=== PATIENT | male | born 1940 | race Caucasian/White ===

== ENCOUNTER 2017-11-06 11:00 | Observation (INO) | payer OTHER ==
[~2017-11-06] VITALS: Ht 170.2 cm; Wt 99.0 kg
[~2017-11-06 11:00] MED LIST: FISH OIL 1,2001 EAC3 PO; LO-DOSE ASPIRIN81 M1 PO; MICRO-K10 ME1 PO; NEURONTIN300 MG PO; OMEPRAZOLE20 MG PO; OMEPRAZOLE40 M1 PO; TRANXENE T-TA3.75 MG PO; ZESTORETIC,P1 TABLE1 PO; ZOCOR40 MG PO
[2017-11-06 12:24] LABS: ALBUMIN 4.3 g/dL (3.2-4.8); CHLORIDE 111 mEq/L (99-109); POTASSIUM 4.4 mEq/L (3.7-5.4); SODIUM 138 mEq/L (136-147)
[2017-11-06 12:26] LABS: GLUCOSE 117 mg/dL (70-99); TOTAL PROTEIN 8.4 g/dL (6.4-8.3)
[2017-11-06 12:28] LABS: TOTAL BILIRUBIN 0.8 mg/dL (0.0-1.0)
[2017-11-06 12:30] LABS: ALKALINE PHOSPHATASE 91 IU/L (3-129); CREATININE 1.1 mg/dL (0.6-1.3); GFR ESTIMATE (CALCULATED) > 59 mL/min/ (58.99-99999)
[2017-11-06 12:31] LABS: AST (GOT) 66 IU/L (2-34); UREA NITROGEN (BUN) 25 mg/dL (9-23)
[2017-11-06 12:33] LABS: ALT (GPT) 38 IU/L (3-49); LIPASE 38 U/L (1.0-51.0)
[2017-11-06 12:51] LABS: HEMATOCRIT 39.9 % (38.0-50.0); HEMOGLOBIN 13.7 G/DL (12.5-16.6); MCH 32.6 PG (29.0-34.0); MCHC 34.3 G/DL (30.0-36.0); PLATELET COUNT 124 K/uL (156-360); RBC DIS.WIDTH-CV 13.2 % (11.8-14.6); RBC DIS.WIDTH-SD 45.7 % (39-53); WHITE BLOOD COUNT 5.9 K/uL (4.1-10.2)
[2017-11-06 13:08] LABS: APPEARANCE CLEAR ((CLEAR)); BILIRUBIN NEGATIVE; BLOOD NEGATIVE; COLOR YELLOW ((YELLOW)); GLUCOSE (STRIP) NEGATIVE; KETONES NEGATIVE; LEUKOCYTES SMALL; NITRITE NEGATIVE; PROTEIN (STRIP) 30; SPECIFIC GRAVITY 1.026 (1.000-1.030); UROBILINOGEN 0.2 MG/DL (0.2-1.0)
[2017-11-06 13:19] LABS: BACTERIA NONE SEEN /HPF; EPITHELIAL CELLS RARE /HPF; HYALINE CASTS 0-5 /LPF; MUCUS TRACE /LPF; RED BLOOD CELLS 0-5 /HPF (0-5); UCUL ADDED? NO; WHITE BLOOD CELLS 0-5 /HPF (0-5)
[2017-11-06] MEDS ORDERED: ULTRAM50 MG PO (19:08)
[2017-11-06] MEDS ORDERED: ACID REDUCER20 MG PO (19:08)
[2017-11-06] MEDS ORDERED: ALPRAZOLAM0.25 M2 PO (19:09)
[2017-11-06] MEDS ORDERED: MOTRIN800 MG PO (19:09)
[2017-11-06] MEDS ORDERED: ONE DAILY1 EAC3 PO (19:10)
[2017-11-06] MEDS ORDERED: POTASSIUM CHLO10 ME4 PO (19:10)
[2017-11-06] MEDS ORDERED: CITALOPRAM HBR20 MG PO (19:10)
[2017-11-06] MEDS ORDERED: LOSARTAN POTAS100 MG PO (19:10)
[2017-11-06] MEDS ORDERED: KRILL OIL500 MG PO (19:11)
[2017-11-07 00:23] VITALS: BP 156/73
[2017-11-07 08:01] VITALS: BP 131/65
[2017-11-07] MEDS ORDERED: FLAGYL 375 MG375 MG PO (10:42)
[2017-11-07 10:45] LABS: BASOPHIL (%) 0.6 % (0-1); EOSINOPHIL (%) 6.6 % (0-5); EOSINOPHIL COUNT 0.3 K/uL (0-0.3); HEMATOCRIT 34.8 % (38.0-50.0); HEMOGLOBIN 11.8 G/DL (12.5-16.6); IMMATURE GRANULOCYTE (%) 0.4 % (0.0-0.7); LYMPHOCYTE (%) 36.4 % (15-42); LYMPHOCYTE COUNT 1.8 K/uL (1.0-2.8); MCH 32.2 PG (29.0-34.0); MCHC 33.9 G/DL (30.0-36.0); MCV 94.8 FL (86-99); MONOCYTE (%) 10.1 % (3-12); MONOCYTE COUNT 0.5 K/uL (0-0.8); NEUTROPHIL (%) 45.9 % (45-76); NEUTROPHIL COUNT 2.3 K/uL (1.8-6.4); PLATELET COUNT 120 K/uL (156-360); RBC DIS.WIDTH-CV 13.2 % (11.8-14.6); RBC DIS.WIDTH-SD 46.5 % (39-53); RED BLOOD COUNT 3.67 M/uL (4.00-5.50)
== END 2017-11-07 10:56 | disposition home or self-care (01) ==
LOC: EME 11:00 → EDOF 20:15 → 4SOUTH 20:15 → EDOF 20:15 → ENRESERV 20:21 → EDOF 11-07 00:03 → 4SOUTH 11-07 00:21
PROVIDERS: Family Medicine
DX: K52.9 Noninfective gastroenteritis and colitis, unspecified (principal); K92.2 Gastrointestinal hemorrhage, unspecified; I25.2 Old myocardial infarction; Z95.5 Presence of coronary angioplasty implant and graft; I10 Essential (primary) hypertension; E78.5 Hyperlipidemia, unspecified; Z87.11 Personal history of peptic ulcer disease; Z87.442 Personal history of urinary calculi; Z90.49 Acquired absence of other specified parts of digestive tract; Z79.82 Long term (current) use of aspirin; Z88.0 Allergy status to penicillin; Z88.5 Allergy status to narcotic agent
CPT/HCPCS: 74177; 80053; 81003; 83690; 85025; 85025 91; 85027; 86850; 86900; 86901; 99281; 99285; G0378; J7030; S0028; S0030